=== PATIENT | male | born 1955 | race African-American/Black ===

== ENCOUNTER 2017-09-28 07:55 | Outpatient (CLI) | payer OTHER ==
[~2017-09-28 07:55] MED LIST: KETO10TA2 PO
== END 2017-09-28 15:45 | disposition home or self-care (01) ==
LOC: SONOGRAMA 07:55
DX: R74.0 Nonspecific elevation of levels of transaminase and lactic acid dehydrogenase [LDH] (principal)

== ENCOUNTER 2019-05-09 09:01 | Outpatient (CLI) | payer OTHER | END 2019-05-09 09:12 | disposition home or self-care (01) | LOC: RAD 09:01 | DX: M25.512 Pain in left shoulder (principal) ==

== ENCOUNTER → 2019-09-12 | Outpatient (CLI) | payer OTHER | END | disposition home or self-care (01) | LOC: RAD 10:28 | DX: M25.511 Pain in right shoulder (principal); M25.512 Pain in left shoulder ==

== ENCOUNTER 2022-05-03 07:20 | Outpatient (CLI) | payer OTHER | END 2022-05-03 07:26 | disposition home or self-care (01) | LOC: SONOGRAMA 07:20 | PROVIDERS: ATTEND Internal Medicine | DX: R97.20 Elevated prostate specific antigen [PSA] (principal) ==